=== PATIENT | male | born 1945 | race Asian ===

== ENCOUNTER 2023-04-11 11:22 | Emergency (ER) | payer MEDICARE, MEDICAID ==
[~2023-04-11] VITALS: Ht 162.6 cm; Wt 56.7 kg
--- NOTE | 2023-04-11 11:26 | NUR ---
Patient to ER bed 06 to gown for evaluation. Side rails up.
[2023-04-11 11:28] VITALS: BP_SYST 151; PULSE 95; RESP 18; TEMP 98.3; O2SAT 98
--- NOTE | 2023-04-11 11:30 | NUR ---
Dr. Lin at bedside.
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
[2023-04-11 11:58] LABS: BASOPHILS % (AUTO) 0.4 % (0.0-2.0); EOSINOPHILS # (AUTO) 0.3 K/uL (0.0-0.4); EOSINOPHILS % (AUTO) 6.8 % (0.0-4.0); HEMATOCRIT 40.3 % (36-54); HEMOGLOBIN 13.1 g/dL (14.0-18.0); LYMPHOCYTES # (AUTO) 1.1 K/uL (1.0-5.5); LYMPHOCYTES % (AUTO) 26.5 % (20.5-51.5); MEAN CORPUSCULAR HEMOGLOBIN 30 pg (27-31); MEAN CORPUSCULAR HGB CONC 33 % (32-36); MEAN CORPUSCULAR VOLUME 91 fL (79.0-98.0); MONOCYTES # (AUTO) 0.6 K/uL (0.0-1.0); MONOCYTES % (AUTO) 12.9 % (1.7-9.3); NEUTROPHILS # (AUTO) 2.3 K/uL (1.8-7.7); NEUTROPHILS % (AUTO) 53.4 % (40.0-70.0); PLATELET COUNT (AUTO) 171 K/uL (130-430); RED BLOOD CELL COUNT(AUTO) 4.42 MIL/uL (4.2-6.2); RED CELL DISTRIBUTION WIDTH 14.7 % (9.0-15.0); WHITE BLOOD COUNT (AUTO) 4.3 K/uL (4.8-10.8)
[2023-04-11] MEDS ORDERED: DIPHTH,PERTUSS(ACELL),TET VAC 0.5 ML VIAL (Tdap) I.M. ONE (12:00)
[2023-04-11 12:06] LABS: ALANINE AMINOTRANSFERASE 11 U/L (12-78); ALBUMIN 3.6 g/dL (3.4-4.8); ANION GAP 9 (5-15); ASPARTATE AMINOTRANSFERASE 23 U/L (10-37); CALCIUM 8.7 mg/dL (8.4-11.0); CHLORIDE 104 mmol/L (98-107); GLUCOSE 136 mg/dL (74-106); TOTAL BILIRUBIN 0.4 mg/dL (0.0-1.0); UREA NITROGEN, BLOOD 13 mg/dL (8-21)
--- NOTE | 2023-04-11 12:10 | NUR ---
Xray at bedside.
[2023-04-11] MEDS ORDERED: KETOROLAC TROMETHAMINE 15 MG VIAL IM ONE (12:45)
[2023-04-11] MEDS ORDERED: LIDOCAINE PATCH 5% 1 EA TP ONE (12:45)
[2023-04-11] MEDS ORDERED: LIDO1ADH63 TP (12:51)
[2023-04-11] MEDS ORDERED: IBUP-1969 PO (12:51)
--- NOTE | 2023-04-11 13:20 | NUR ---
Patient given written and verbal discharge instructions and verbalizes understanding. ER MD discussed with patient the results and treatment provided. Patient in stable condition. ID arm band removed. Rx of Ibuprofen and Lidocaine given. Patient educated on pain management and to follow up with PMD. Pain Scale 2/10. Opportunity for questions provided and answered. Medication side effect fact sheet provided.
[2023-04-11 13:21] VITALS: BP_SYST 150; PULSE 85; RESP 17; TEMP 96.8; O2SAT 96
== END 2023-04-11 13:20 | disposition home or self-care (01) ==
LOC: SED 11:22
DX: S20.212A Contusion of left front wall of thorax, initial encounter (principal); S40.212A Abrasion of left shoulder, initial encounter; S50.312A Abrasion of left elbow, initial encounter; S80.212A Abrasion, left knee, initial encounter; Z79.899 Other long term (current) drug therapy; V13.4XXA Pedal cycle driver injured in collision with car, pick-up truck or van in traffic accident, initial encounter; Y93.89 Activity, other specified; Y92.89 Other specified places as the place of occurrence of the external cause; Y99.8 Other external cause status
CPT/HCPCS: 99285; 71045; 80053; 85025; 84484; 36415; 93005; 71100; 90715; 96372; 90471; J1885